=== PATIENT | male | born 1990 | race Two or more races ===

== ENCOUNTER 2019-05-19 08:41 | Emergency (ER) | payer SELFPAY ==
[~2019-05-19] VITALS: Ht 175.3 cm; Wt 81.6 kg
[2019-05-19 08:46] VITALS: BP 110/89
[2019-05-19 09:26] LABS: Urine Bacteria NONE SEEN /hpf (None Seen); Urine Blood Negative /uL (Negative); Urine Specific Gravity 1.017 (1.001-1.035); Urine WBC <1 /hpf (0 - 3)
== END 2019-05-19 13:12 | disposition left against medical advice (07) ==
LOC: ER 08:41
DX: N48.89 Other specified disorders of penis (principal); F17.210 Nicotine dependence, cigarettes, uncomplicated; F12.10 Cannabis abuse, uncomplicated; F15.10 Other stimulant abuse, uncomplicated; Z53.29 Procedure and treatment not carried out because of patient's decision for other reasons
CPT/HCPCS: 81001

== ENCOUNTER 2021-04-11 15:59 | Emergency (ER) | payer OTHER ==
[~2021-04-11] VITALS: Ht 177.8 cm; Wt 77.1 kg
[2021-04-11 16:24] VITALS: BP 142/89
== END 2021-04-11 18:53 ==
LOC: ER 15:59
DX: S00.83XA Contusion of other part of head, initial encounter (principal); F17.210 Nicotine dependence, cigarettes, uncomplicated; W22.01XA Walked into wall, initial encounter; Y93.89 Activity, other specified; Y92.89 Other specified places as the place of occurrence of the external cause; Y99.8 Other external cause status
CPT/HCPCS: 70450